=== PATIENT | female | born 1995 | race African-American/Black ===

== ENCOUNTER 2022-07-08 08:11 | Emergency (ER) | payer MEDICAID ==
[~2022-07-08] VITALS: Ht 170.2 cm; Wt 75.0 kg
[~2022-07-08 08:11] MED LIST: ALBUTEROL INHALER; PREN-88 PO; PREN1CAP13 PO
[2022-07-08 08:16] VITALS: BP 105/62
[2022-07-08] MEDS ORDERED: ACETAMINOPHEN 325MG TABLET PO NR (16:00)
[2022-07-08] MEDS: IBUPROFEN 400MG TABLET PO NR (16:37)
[2022-07-08 16:58] LABS: CLARITY URINE CLOUDY (CLEAR); COLOR URINE DARK YELLOW (YELLOW); KETONES URINE 3+ (NEGATIVE); LEUKOCYTE ESTERASE URINE 1+ (NEGATIVE); NITRITE URINE NEGATIVE (NEGATIVE); OCCULT BLOOD URINE NEGATIVE (NEGATIVE); PH URINE 5.5 (4.5-8.0); PROTEIN URINE 1+ (NEGATIVE); SPECIFIC GRAVITY URINE 1.034 (1.005-1.030)
[2022-07-08] MEDS ORDERED: CIPR-263 MT (19:01)
== END 2022-07-08 20:22 | disposition home or self-care (01) ==
LOC: ER 08:11
DX: R10.32 Left lower quadrant pain (principal)
CPT/HCPCS: 76830; 76856; 81003; 81025; 99284

== ENCOUNTER 2023-04-05 02:02 | Emergency (ER) | payer MEDICAID ==
[~2023-04-05] VITALS: Ht 172.7 cm; Wt 73.0 kg
[~2023-04-05 02:02] MED LIST changes: +CIPR-263 MT
[2023-04-05 02:04] VITALS: BP 116/77; O2SAT 98
[2023-04-05] MEDS ORDERED: ACETAMINOPHEN 325MG TABLET PO STA (02:17)
[2023-04-05 03:29] LABS: BASOPHILS % 0.4 % (0.0-2.0); EOSINOPHILS % 1.2 % (0.0-5.0); HEMOGLOBIN. 11.1 g/dL (12.0-16.0); LYMPHOCYTES % 45.8 % (20.0-50.0); MEAN CORPUSCULAR HEMOGLOBIN 28.4 pg (28.0-32.0); MEAN CORPUSCULAR HGB CONC 32.7 g/dL (31.0-37.0); MEAN CORPUSCULAR VOLUME 86.9 fL (81.0-99.0); MEAN PLATELET VOLUME 8.8 fl (7.4-10.4); NEUTROPHILS % 46.6 % (40.0-76.0); PLATELET 274 x1000/uL (130-400); RED BLOOD CELL COUNT 3.91 mill/uL (4.2-5.4); RED CELL DISTRIBUTION WIDTH 14.8 % (11.6-14.6); WHITE BLOOD COUNT 5.8 x1000/uL (4.5-11.0)
[2023-04-05 03:30] LABS: CHLORIDE 109 mEq/L (98-107); INDEX HEMOLYSI 1 (1-3); INDEX ICTERIC 1 (1-4); INDEX LIPEMIC 1 (1-3); POTASSIUM 3.6 mEq/L (3.5-5.1); SODIUM 138 mEq/L (136-145)
[2023-04-05 03:37] LABS: ALANINE AMINOTRANSFERASE 16 IU/L (13-61); ALBUMIN 3.6 g/dL (3.4-5.0); ASPARTATE AMINOTRANSFERASE 10 IU/L (15-37); BILIRUBIN TOTAL 0.4 mg/dL (0.1-1.0); CALCIUM 8.4 mg/dL (8.5-10.1); CARBON DIOXIDE 27 mEq/L (21-32); CREATININE 0.8 mg/dL (0.6-1.3); GLUCOSE 100 mg/dL (70-105); PROTEIN TOTAL 7.3 g/dL (6.0-8.3); UREA NITROGEN BLOOD 13 mg/dL (7-21)
[2023-04-05 04:09] LABS: PROTHROMBIN TIME 10.7 sec (9.6-11.0)
[2023-04-05 04:41] LABS: HCG SCREEN NEGATIVE
[2023-04-05 04:43] LABS: CLARITY URINE CLEAR (CLEAR); COLOR URINE YELLOW (YELLOW); GLUCOSE URINE NEGATIVE (NEGATIVE); KETONES URINE NEGATIVE (NEGATIVE); LEUKOCYTE ESTERASE URINE TRACE (NEGATIVE); NITRITE URINE NEGATIVE (NEGATIVE); OCCULT BLOOD URINE 1+ (NEGATIVE); PH URINE 5.5 (4.5-8.0); PROTEIN URINE 2+ (NEGATIVE); SPECIFIC GRAVITY URINE 1.031 (1.005-1.030); UROBILINOGEN URINE 0.2 E.U./dL (0.2-1.0)
[2023-04-05 04:46] LABS: BACTERIA URINE NONE SEEN; SQUAMOUS EPITHELIAL CELL URINE 1+ /lpf (RARE/1+)
[2023-04-05] MEDS: ACETAMINOPHEN 325MG TABLET PO NR ×3 (04:46→06:01)
[2023-04-05 05:38] LABS: YEAST URINE NONE SEEN
[2023-04-05] MEDS ORDERED: NAPR-1074 MT (06:07)
[2023-04-05 06:26] VITALS: PULSE 70; RESP 16; TEMP 98.8
== END 2023-04-05 06:27 | disposition home or self-care (01) ==
LOC: ER 02:02
DX: R10.30 Lower abdominal pain, unspecified (principal); Z00.00 Encounter for general adult medical examination without abnormal findings
CPT/HCPCS: 36415; 74176; 80053; 81003; 81025; 84703; 85025; 99284